=== PATIENT | female | born 2000 | race American Indian/Alaskan Native ===

== ENCOUNTER 2021-07-11 23:29 | Emergency (ER) | payer MEDICAID ==
[2021-07-12 00:59] VITALS: BP 108/56
--- NOTE | 2021-07-12 01:01 | Emergency Department Report ---
ED Abdominal Pain HPI - General Chief Complaint: Abdominal Pain Stated Complaint: BACK AND STOMACH PAIN PUI?: No Time Seen by Provider: 07/12/21 00:58 Source: patient Mode of arrival: Ambulatory Limitations: No Limitations - History of Present Illness Initial Comments: 20-year-old female presents to the ER today with complaints of low abdominal pain radiating into her back. Patient states that her symptoms started about 2 to 3 days ago. She described as a sharp intermittent pain. She denies any associated UTI symptoms, abnormal vaginal discharge, nausea, vomiting, diarrhea or constipation. She states that her last menstrual cycle was June 16, 2021. She is not currently on any control. She states that she has been taking Tylenol and ibuprofen without much relief. She denies any abdominal surgeries. She is sexually active, denies any new sexual partners recently. MD Complaint: abdominal pain -: Gradual, days(s) (2) - Related Data Previous Rx's Medication Instructions Recorded Last Taken Type Ibuprofen [Motrin] 600 mg PO Q8H PRN #30 tablet 07/12/21 Unknown Rx Allergies Allergy/AdvReac Type Severity Reaction Status Date / Time No Known Allergies Allergy Unverified 07/12/21 00:53 ED Review of Systems ROS: Stated complaint: BACK AND STOMACH PAIN Other details as noted in HPI Comment: All other systems reviewed and negative Constitutional: denies: chills, fever Eyes: denies: eye pain, eye discharge, vision change ENT: denies: ear pain, throat pain, dental pain, hearing loss, epistaxis, congestion Respiratory: denies: cough, orthopnea, shortness of breath, SOB with exertion, SOB at rest, wheezing Cardiovascular: denies: chest pain, palpitations, dyspnea on exertion, edema, syncope, paroxysmal nocturnal dyspnea Gastrointestinal: abdominal pain. denies: nausea, vomiting, diarrhea, constipation, hematemesis, melena, hematochezia Genitourinary: denies: urgency, dysuria, frequency, hematuria, discharge, abnormal menses, dyspareunia Musculoskeletal: denies: back pain, joint swelling, arthralgia Skin: denies: rash, lesions, change in color, change in hair/nails, pruritus Neurological: denies: headache, weakness, numbness, paresthesias, confusion, abnormal gait, vertigo Psychiatric: denies: anxiety, depression, auditory hallucinations, visual hallucinations, homicidal thoughts, suicidal thoughts Hematological/Lymphatic: denies: easy bleeding, swollen glands ED Past Medical Hx - Past Medical History Previous Medical History?: No - Surgical History Past Surgical History?: No - Medications Home Medications: Home Medications Medication Instructions Recorded Confirmed Last Taken Type Ibuprofen [Motrin] 600 mg PO Q8H PRN #30 tablet 07/12/21 Unknown Rx ED Physical Exam - General Limitations: No Limitations General appearance: alert, in no apparent distress - Head Head exam: Present: atraumatic, normocephalic - Eye Eye exam: Present: normal appearance, PERRL, EOMI Pupils: Present: normal accommodation - ENT ENT exam: Present: normal exam, mucous membranes moist, TM's normal bilaterally - Neck Neck exam: Present: normal inspection, full ROM - Respiratory Respiratory exam: Present: normal lung sounds bilaterally. Absent: respiratory distress, wheezes, rales, rhonchi - Cardiovascular Cardiovascular Exam: Present: regular rate, normal rhythm, normal heart sounds - GI/Abdominal GI/Abdominal exam: Present: soft, tenderness (Mild RLQ abd ttp without guarding or rebound). Absent: distended - Neurological Exam Neurological exam: Present: alert, oriented X3, CN II-XII intact, normal gait - Psychiatric Psychiatric exam: Present: normal affect, normal mood - Skin Skin exam: Present: intact ED Course Vital Signs 07/12/21 00:54 Temperature 98.5 F Pulse Rate 74 Respiratory 16 Rate Blood Pressure 108/56 O2 Sat by Pulse 100 Oximetry ED Medical Decision Making - Lab Data Result diagrams: 07/12/21 01:07 07/12/21 01:07 - Radiology Data Radiology results: report reviewed Patient: MARYBEL STOCK MR#: [id number] : 2000 Acct:[id number] Age/Sex: 20 / F ADM Date: 07/11/21 Loc: ED Attending Dr: Ordering Physician: COURTNEY SWAIN Date of Service: 07/12/21 Procedure(s): CT abdomen pelvis w con Accession Number(s): [id number] cc: COURTNEY SWAIN CT abdomen pelvis w con INDICATION / CLINICAL INFORMATION: RLQ pain. TECHNIQUE: Axial CT images were obtained through the abdomen and pelvis after 100 cc of Omnipaque [address] scans at this location are performed using CT dose reduction for ALARA by means of automated exposure control. COMPARISON: None available. FINDINGS: LOWER CHEST: No significant abnormality LIVER: No significant abnormality GALLBLADDER/BILIARY TREE: No significant abnormality PANCREAS: No significant abnormality SPLEEN: No significant abnormality ADRENALS: No significant abnormality KIDNEYS / URETER: No significant abnormality URINARY BLADDER: Bladder is partially decompressed, though grossly unrem arkable. REPRODUCTIVE ORGANS: Endometrial fluid/thickening is likely physiologic. No suspicious adnexal mass. STOMACH / BOWEL: No significant abnormality. The appendix is normal in caliber. LYMPH NODES: No significant adenopathy. VASCULATURE: No significant abnormality. OTHER: No free air, free fluid, or focal fluid collection is identified. SKELETAL SYSTEM: No acute osseous findings. IMPRESSION: 1. No acute abnormality of the abdomen or pelvis. Signer Name: Jj Cooper MD Signed: 07/12/2021 2:47 AM Workstation Name: [id number] Transcribed By: AMBER Dictated By: JJ COOPER MD Electronically Authenticated By: JJ COOPER MD Signed Date/Time: 07/12/21246 DD/ 4 TD/TT: - Medical Decision Making All labs reviewed and unremarkable. Patient reports CT abdomen pelvis with IV contrast shows nothing acute. Patient reports some improvement of her pain after the IV Toradol. She is currently laying in the bed, playing on her phone, she does not appear to be in any acute distress. She is not toxic or ill- appearing. Vital signs have been stable. Patient has no vaginal discharge, and she denies new sexual partner. I am concerned for ovarian abscess, PID or torsion at this time. Discussed all labs and CT reports with patient. While discussing lab results and CT results with patient, she then mentions that she had taken a home test and it was positive and seem to be more concerned about . Informed that the test today was negative. At this time there is no indication for any additional testing, admission or specialist consult. Recommend follow-up with the primary care doctor and or her [facility] specialist if symptoms persist but she understands if symptoms worsens to return to the ER. - Differential Diagnosis UTI, ectopic , appendicitis, pyelonephritis, ovarian torsion/absc Critical care attestation.: If time is entered above; I have spent that time in minutes in the direct care of this critically ill patient, excluding procedure time. ED Disposition Clinical Impression: Lower abdominal pain, Low back pain Disposition: 01 HOME / SELF CARE / HOMELESS Is pt being admited?: No Does the pt Need Aspirin: No Condition: Stable Instructions: Acute Back Pain, Adult, Abdominal Pain, Adult, [id number], Abdominal Pain (ED) Additional Instructions: I recommend taking the motrin as prescribed and as needed for pain. Follow up with your PCP and or OBGYN this week especially if symptoms continues. Return to ED if worse. Prescriptions: Ibuprofen [Motrin] 600 mg PO Q8H PRN #30 tablet PRN Reason: Pain Referrals: [facility] [Provider Group] - 3-5 Days [facility] [Provider Group] - 3-5 Days [facility] [Provider Group] - 3-5 Days Forms: Work/School Release Form(ED) Time of Disposition: 03:10 Print Language: SALVADOREAN
[2021-07-12 01:30] LABS: Bacteria,Urine 1+ /HPF (Negative); Bilirubin,Urine NEG (Negative); Blood,Urine NEG (Negative); Color,Urine Yellow (Yellow); Mucus,Urine 2+ /HPF; Protein,Urine <15 mg/dL mg/dL (Negative)
[2021-07-12 01:41] LABS: Basophils # (Auto) 0.1 K/mm3 (0.0-0.1); Basophils % (Auto) 0.8 % (0.0-1.8); Eosinophils # (Auto) 0.2 K/mm3 (0.0-0.4); Hematocrit 37.9 % (30.3-42.9); Hemoglobin 12.5 gm/dl (10.1-14.3); Lymphocytes % (Auto) 26.3 % (13.4-35.0); Mean Corpuscular HGB Conc 33 % (30-34); Mean Corpuscular Volume 75 fl (79-97); Monocytes # (Auto) 0.5 K/mm3 (0.0-0.8); Monocytes % (Auto) 6.7 % (0.0-7.3); Platelet Count 299 K/mm3 (140-440); Red Blood Count 5.06 M/mm3 (3.65-5.03); Red Cell Distribution Width 16.2 % (13.2-15.2)
[2021-07-12 01:42] LABS: HCG Qualitative,Urine Negative (Negative)
[2021-07-12 01:45] LABS: Alanine Aminotransferase 8 units/L (7-56); Albumin 3.9 g/dL (3.9-5); Blood Urea Nitrogen 13 mg/dL (7-17); Calcium 8.9 mg/dL (8.4-10.2); Hemolysis Index 6
[2021-07-12 01:46] LABS: BUN/Creatinine Ratio 19
[2021-07-12] MEDS ORDERED: KETOROLAC 30 MG/1 ML INJ IV ONE (01:54)
--- NOTE | 2021-07-12 02:52 | Cat Scan Report ---
CT abdomen pelvis w con INDICATION / CLINICAL INFORMATION: RLQ pain. TECHNIQUE: Axial CT images were obtained through the abdomen and pelvis after 100 cc of Omnipaque [address] scans at this location are performed using CT dose reduction for ALARA by means of automated exposure control. COMPARISON: None available. FINDINGS: LOWER CHEST: No significant abnormality LIVER: No significant abnormality GALLBLADDER/BILIARY TREE: No significant abnormality PANCREAS: No significant abnormality SPLEEN: No significant abnormality ADRENALS: No significant abnormality KIDNEYS / URETER: No significant abnormality URINARY BLADDER: Bladder is partially decompressed, though grossly unremarkable. REPRODUCTIVE ORGANS: Endometrial fluid/thickening is likely physiologic. No suspicious adnexal mass. STOMACH / BOWEL: No significant abnormality. The appendix is normal in caliber. LYMPH NODES: No significant adenopathy. VASCULATURE: No significant abnormality. OTHER: No free air, free fluid, or focal fluid collection is identified. SKELETAL SYSTEM: No acute osseous findings. IMPRESSION: 1. No acute abnormality of the abdomen or pelvis. Signer Name: David Cooper MD Signed: 07/12/2021 2:47 AM Workstation Name: [id number]
== END 2021-07-12 03:37 | disposition home or self-care (01) ==
LOC: ED 23:29
DX: R10.30 Lower abdominal pain, unspecified (principal); M54.5 Low back pain
CPT/HCPCS: 36415; 74177; 80053; 81001; 81025; 83690; 85025; 96374; 99284; J1885; Q9967